=== PATIENT | female | born 1940 | race American Indian/Alaskan Native ===

== ENCOUNTER → 2023-07-28 | Outpatient (CLI) | payer MEDICARE ==
[~2023-07-28] MED LIST: AMITRIPTYLINE H25 M1 PO; ASPIRIN 81M81 MG/TA2 PO; CEFTIN500 MG PO; COZAAR 25MG25 MG/TAB PO; CYMBALTA 20MG20 MG PO; DOXYCYCLINE 10100 MG PO; LIPITOR 10MG10 MG PO; MULTI VITAMINS1 TAB PO; NITROSTAT0.4 MG/TAB SL; OMEGA-3 1000 MG1 CAP PO; OMNICEF 300MG300 MG PO; OSCAL 500 TAB500 MG PO; PACERONE100 MG PO; PREDNISONE20 MG PO; PREDNISONE50 MG PO; PROPYLTHIOURACI50 M1 PO; TOPROL XL 25MG25 MG PO
== END ==
LOC: COL.CARD 07-26 08:00
DX: J84.10 Pulmonary fibrosis, unspecified (principal)

== ENCOUNTER 2023-08-02 08:24 | Day surgery (SDC) | payer MEDICARE ==
[2023-08-02] VITALS (647 sets, daily range): BP systolic 123–140; BP diastolic 59–73; PULSE 60–64; TEMP 97.7–98; O2SAT 70–100
[~2023-08-02] VITALS: Ht 157.5 cm; Wt 71.5 kg
[~2023-08-02 08:24] MED LIST changes: -CYMBALTA 20MG20 MG PO; +CYMBALTA 30MG30 MG PO
[2023-08-02 09:20] LABS: BASO # 0.1 K/mm3 (0.0-0.2); BASO % 0.9 % (0.0-2.0); EOS # 0.6 K/mm3 (0.0-0.7); EOS % 8.7 % (0.0-4.0); GRAN # 3.9 K/mm3 (1.4-6.5); GRAN % 58.1 % (42.2-75.2); HEMOGLOBIN 11.3 g/dl (12.5-16.0); LYMPH # 1.8 K/mm3 (1.2-3.4); LYMPH % 26.4 % (20.0-51.0); MEAN CELL VOLUME 80 fl (80.0-100.0); MEAN CORPUSCULAR HEMOGLOBIN 25 pg (27-31); MEAN CORPUSCULAR HGB CONC 31 g/dl (33.0-37.0); MEAN PLATELET VOLUME 9.9 fl (7.4-10.4); MONO # 0.4 K/mm3 (0.1-0.6); MONO % 5.8 % (1.7-9.3); PLATELET COUNT 257 K/mm3 (130-400); RED BLOOD COUNT 4.54 M/mm3 (4.10-5.30); REDCELL DISTRIBUTION WIDTH-CV 14.5 % (11.5-14.5)
[2023-08-02 09:31] LABS: HEMATOCRIT 36.1 % (37.0-47.0)
[2023-08-02 09:36] LABS: CREATININE, serum 1.23 mg/dL (0.57-1.11); MAGNESIUM 1.9 mg/dL (1.6-2.6); POTASSIUM 5.2 mmol/L (3.5-4.5)
--- NOTE | 2023-08-02 11:10 | NUR ---
1045NOTIFIED HERBIE Lemos/ DR BANSAL THAT PT'S QTC IS 485, POTASSIUM IS 5.2, MAG IS 1.9. 1100 RECEIVED CALL FROM HERBIE Lemos/ ORDER TO INITIATE SOTALOL INFUSION. ORDER SHEET FAXED TO PHARMACY.
--- NOTE | 2023-08-02 12:00 | NUR ---
DR BANSAL NOTIFIED PT'S QTC IS ABOVE 500 DURING INFUSION AND ON POST INFUSION EKG.INSTRUCTED TO START PO DOSE PREVIOUSLY ORDERED.
--- NOTE | 2023-08-02 14:19 | NUR ---
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 Patient lives in [place] with her , Ronny, P# [phone]. PCP is Dr Guillen and preferred pharmacy is [facility]. No issues with affording medications. Insurance is Medicare, [employer] Supplemental and [employer] (for prescriptions). Patient does not have a DPOA-HC and her only DME is oxygen at home. Patient reports to be independent with ADLS. Patient has a form of transportation to get to and from appointments. Patient would like to return home at time of discharge.
[2023-08-02] MEDS ORDERED: NEURONTIN100 MG/CAP PO (14:51)
[2023-08-03] VITALS (113 sets, daily range): BP systolic 114–135; BP diastolic 55–71; PULSE 60; TEMP 97.7–98.1; O2SAT 71–100
[2023-08-03 04:59] LABS: CALCIUM 9.1 mg/dL (8.4-10.2); CREATININE, serum 1.08 mg/dL (0.57-1.11); MAGNESIUM 2.1 mg/dL (1.6-2.6); POTASSIUM 4.3 mmol/L (3.5-4.5)
--- NOTE | 2023-08-03 10:34 | NUR ---
PT is resting in bed comfortably with her bedside. She states she slept well last night and has no complaints or needs. Call light in reach.
[2023-08-03] MEDS ORDERED: BETAPACE 120MG120 MG PO (11:57)
--- NOTE | 2023-08-03 12:30 | NUR ---
PT GIVEN DISCHARGE INSTRUCTIONS, INT DC'D. PT WOULD LIKE TO WALK TO PATIENT ENTRANCE AND HAS DECLINED WHEEL CHAIR.
[2023-08-10] MEDS ORDERED: LIPITOR20 MG PO (02:50)
[2023-08-10] MEDS ORDERED: CYMBALTA 30MG30 MG PO (02:51)
[2023-08-10] MEDS ORDERED: PROAIR HFA0.09 MG/AC IH (02:51)
[2023-08-10] MEDS ORDERED: COZAAR 50MG50 MG/TAB PO (02:51)
[2023-08-10] MEDS ORDERED: HYPERSAL IH (02:51)
[2023-08-10] MEDS ORDERED: TOPROL XL 50MG50 MG PO (14:32)
[2023-08-12] MEDS ORDERED: LEVAQUIN 5500 MG/TA1 PO (09:12)
[2023-08-12] MEDS ORDERED: PREDNISONE20 MG PO (10:59)
== END 2023-08-03 12:40 | disposition home or self-care (01) ==
LOC: SDCO 08:24 → IMCU 08:24 → SDCO 08-03 12:40 → EDSTATUS 08-03 13:10
PROVIDERS: Internal Medicine Cardiovascular Disease
DX: J84.10 Pulmonary fibrosis, unspecified (principal); I47.20 Ventricular tachycardia, unspecified; I42.0 Dilated cardiomyopathy; J84.9 Interstitial pulmonary disease, unspecified; I08.0 Rheumatic disorders of both mitral and aortic valves; E78.2 Mixed hyperlipidemia; I44.2 Atrioventricular block, complete; I25.10 Atherosclerotic heart disease of native coronary artery without angina pectoris; Z79.899 Other long term (current) drug therapy; Z95.810 Presence of automatic (implantable) cardiac defibrillator; Z79.82 Long term (current) use of aspirin
CPT/HCPCS: OP; C9482; J3475; J7050

== ENCOUNTER 2023-09-26 16:24 | Outpatient (RCR) | payer MEDICARE ==
[~2023-09-26 16:24] MED LIST changes: +BETAPACE 120MG120 MG PO; +COZAAR 50MG50 MG/TAB PO; +HYPERSAL IH; +LEVAQUIN 5500 MG/TA1 PO; +LIPITOR20 MG PO; +NEURONTIN100 MG/CAP PO; +PROAIR HFA0.09 MG/AC IH; +TOPROL XL 50MG50 MG PO
== END 2023-09-27 | disposition home or self-care (01) ==
LOC: COL.CR
DX: J84.10 Pulmonary fibrosis, unspecified (principal)
CPT/HCPCS: G0237; G0239

== ENCOUNTER → 2023-10-26 | Outpatient (RCR) | payer MEDICARE | END | disposition home or self-care (01) | LOC: COL.CR | DX: J84.10 Pulmonary fibrosis, unspecified (principal) | CPT/HCPCS: G0237; G0239 ==

== ENCOUNTER 2023-12-21 14:40 | Outpatient (RCR) | payer MEDICARE | END 2023-12-26 | disposition home or self-care (01) | LOC: COL.CR | DX: J84.10 Pulmonary fibrosis, unspecified (principal) | CPT/HCPCS: G0239 ==

== ENCOUNTER 2024-01-04 15:00 | Outpatient (RCR) | payer MEDICARE ==
--- NOTE | 2024-02-22 14:31 | NUR ---
Followed up with patient at 30 days. Patient states she has "been doing good". She continues with her exercise at the [facility]. She walked 1 mile today and yesterday in addition to riding the bicycle for 15 minutes. Staff encouraged her to "keep up the good work" and to remember we are here if she has any questions or needs anything. Pt aware.
== END 2024-01-26 | disposition home or self-care (01) ==
LOC: COL.CR
DX: J84.10 Pulmonary fibrosis, unspecified (principal)
CPT/HCPCS: G0239

== ENCOUNTER → 2024-02-13 | Outpatient (CLI) | payer MEDICARE | LOC: COL.LAB 11:40 | DX: J47.9 Bronchiectasis, uncomplicated (principal) ==